=== PATIENT | female | born 1970 ===

== ENCOUNTER 2017-10-21 17:43 | Emergency (ER) | payer SELFPAY ==
[2017-10-21 17:44] VITALS: BP 135/68; PULSE 87; RESP 18; TEMP 36.4; O2SAT 100; BMI 28.1
--- NOTE | 2017-10-21 18:50 | ED.RN ---
PT CURING AND YELLING LOUDLY. DEMANDING TO BE SEEN QUICKLY BY WANDERING OUT IN HALLWAY CAUSING A DISTURBANCE TO OTHER PATIENTS. TRIED TO DEESCALATE AND ORIENT BACK TO ROOM. PT STEPPED CLOSE TO THIS NURSE IN FACE. HRO AND SECURITY CALLED. PT AND MALE VISITOR WANDERING TO TRIAGE. ANOTHER PATIENT REPORTS HE SAW MALE VISITOR COMING OUT OF THE BATHROOM SMOKING AND THE ROOM SMELLED LIKE SMOKE.
== END 2017-10-21 19:20 | disposition left against medical advice (07) ==
LOC: ED 19:18
PROVIDERS: Emergency Provider Emergency Medicine; Family Provider Family Medicine; PCP Family Medicine
DX: Z53.21 Procedure and treatment not carried out due to patient leaving prior to being seen by health care provider (principal)